=== PATIENT | male | born 1955 | race Caucasian/White ===

== ENCOUNTER 2017-08-06 10:51 | Observation (INO) | payer BC ==
[2017-08-06] MEDS ORDERED: Promethazine HCl 25 MG/ML VIAL ONE (14:18)
[2017-08-06] MEDS ORDERED: Heparin 10,000 UNITS/1 ML VIAL ONE ×3 (14:25→17:59)
[2017-08-06] MEDS ORDERED: Protamine Sulfate 50 MG/5 ML VIAL ONE (14:31)
[2017-08-06] MEDS ORDERED: Furosemide 40 MG/4 ML VIAL ONE (14:31)
[2017-08-06] MEDS ORDERED: Fentanyl 100 MCG/2 ML VIAL ONE ×4 (14:31→20:29)
[2017-08-06] MEDS ORDERED: SUGAMMADEX SODIUM 500 MG/5 ML VIAL ONE (14:47)
[2017-08-06] MEDS ORDERED: Glycopyrrolate 0.2 MG/ML 5 ML SYRINGE ONE (15:22)
[2017-08-06] MEDS ORDERED: Propofol 200 MG/20 ML VIAL ONE (15:22)
[2017-08-06] MEDS ORDERED: Ondansetron HCl/PF 4 MG/2 ML Vial ONE (15:22)
[2017-08-06] MEDS ORDERED: Succinylcholine Chloride 20 MG/ML 10 ml SYRINGE FS ONE (15:22)
[2017-08-06] MEDS ORDERED: Heparin 25,000 units/D5W 500 ML ONE (16:38)
[2017-08-06] MEDS ORDERED: Isoproterenol 0.2 MG/1 ML AMP ONE (18:15)
[2017-08-06] MEDS ORDERED: Promethazine HCl 25 MG/ML VIAL IM PRN (19:17)
[2017-08-06] MEDS ORDERED: Meperidine HCl/PF 25 MG/ML VIAL SLOW IVP PRN (19:17)
[2017-08-06] MEDS ORDERED: Ondansetron HCl/PF 4 MG/2 ML Vial IVP PRN ×2 (19:17→21:29)
[2017-08-06] MEDS ORDERED: Promethazine HCl 25 MG/ML VIAL SLOW IVP PRN (19:17)
[2017-08-06] MEDS ORDERED: Bisacodyl 5 MG TAB PO PRN (21:29)
[2017-08-06] MEDS ORDERED: Acetaminophen 325 MG TAB PO PRN (21:29)
[2017-08-06] MEDS ORDERED: Bisacodyl 10 MG SUPP PR PRN (21:29)
[2017-08-06] MEDS ORDERED: diphenhydrAMINE HCl 25 MG CAP PO PRN (21:29)
[2017-08-06] MEDS ORDERED: Nitroglycerin 0.4 MG TAB (25 Tab Bottle) SL PRN (21:29)
[2017-08-06] MEDS ORDERED: Mag-Al 1200 mg/1200 mg/30 ML UDCUP PO PRN (21:29)
[2017-08-06] MEDS ORDERED: traMADol HCl 50 MG TAB PO PRN (21:29)
[2017-08-06] MEDS ORDERED: Silver Sulfadiazine 1% Cream 50 GM JAR TOP PRN (21:29)
[2017-08-06] MEDS ORDERED: Temazepam 15 MG CAP PO PRN (21:29)
[2017-08-06 21:45] VITALS: BMI 44.1
[2017-08-07] MEDS ORDERED: Carvedilol 6.25 MG TAB PO SCH ×2 (00:30→09:00)
[2017-08-07] MEDS ORDERED: Apixaban 5 MG TAB PO SCH ×2 (00:30→09:00)
[2017-08-07] MEDS ORDERED: PROVENTIL INHALER 6.7 G (200 INHALATIONS) INH PRN (00:33)
--- NOTE | 2017-08-07 07:01 | CCL ---
DATE OF OPERATION: 08/06/2017 ELECTROPHYSIOLOGY STUDY AND RADIOFREQUENCY ABLATION REPORT REFERRING PHYSICIAN: Deep Ochoa M.D. REASON FOR PROCEDURE: Mr. Ziegler is a 61-year-old man with prior history of hypertension, diabetes, pr ior history of cardiomyopathy with reduced LVEF, although at this point his LVEF has been on ICE cat heter. He is here for pulmonary venous isolation procedure. PROCEDURE: The patient received deep sedation by Anesthesia specialist. After adequate level of se dation achieved, the both femoral veins were prepped, draped and anesthetized. The femoral veins we re accessed using vascular ultrasound guidance, and on the left side a rectus sheath and a 9 [place] short sheath was introduced. A duodeca catheter was then advanced to the coronary sinus in the righ t atrial position and also an intracardiac ultrasound was advanced through this side to help with mo nitoring transseptal procedure and monitor for IV infusion. Ultrasound map of the left atrium was o btained. Following that, the right femoral vein was accessed and a long sheath was introduced throu gh which a Sherice needle was used to perform transseptal puncture with ICE catheter monitoring. Th e Sherice catheter was exchanged through the guidewire and eventually to Agilis deflectable sheath a nd the second transseptal puncture was performed in a similar fashion to the first leaving the Prefe s sheath in place. Following that, a Lasso catheter was advanced through the left atrium and a Smar t-SF bidirectional catheter was advanced to the left atrium. A 3D map of the atrium was obtained us ing the Carto mapping system. Following that, we proceeded with a pulmonary venous isolation isolat ing all 4 veins. Following that, the catheter was then advanced to the left ventricle. The ablatio n catheter was advanced to the left ventricular and VA conduction test was performed ruling out acce ssory pathway. After that Isuprel was initiated and the pulmonary veins were rechecked for any resi dual conduction. Eventually, isolation was achieved in all 4 veins. Following that, basic EP study was performed and reinduction of the arrhythmias were attempted, but no arrhythmia was induced. MEASUREMENTS: The baseline cycle length is 772 milliseconds. The QRS duration is 82 milliseconds, QT duration is 405 milliseconds, and TN is 129 milliseconds. The normal HV interval is noted. Sinus node recovery time was measured at 1153, corrected 370 milliseconds which was normal. AV Wenc kebach cycle length was 310 milliseconds, retrograde Wenckebach cycle length was 290 milliseconds on Isuprel, AV elizabeth ERP measured to be less than 600/180 milliseconds, ------ 600/180 milliseconds. Concentric retrograde left atrial activation seen during VA pacing. Dual AV elizabeth physiology was no t present and again no additional arrhythmias were induced. CONCLUSION: 1. Successful pulmonary venous isolation performed. 2. Normal sinus and AV elizabeth function. 3. No evidence of accessory pathway. 4. No dual AV elizabeth physiology. 5. No arrhythmia induced on and off Isuprel. PLAN: Resume anticoagulation, sheaths will be pulled in the labor specialist after reversing the heparin we given throughout the procedure with protamine injection. Sheaths will be pulled in the labor specialist. The patient tolerated the procedure well, no complications noted. POS: LARON
[2017-08-07] MEDS ORDERED: Multivitamin W/ Minerals 1 TAB PO SCH (09:00)
[2017-08-07] MEDS ORDERED: Furosemide 40 MG TAB PO SCH (09:00)
[2017-08-07] MEDS ORDERED: Ascorbic Acid 500 mg Chewable Tablet PO SCH (09:00)
[2017-08-07] MEDS ORDERED: Lisinopril 20 MG TAB PO SCH (09:00)
[2017-08-07] MEDS ORDERED: CINNAMON BARK 1000 MG PO SCH (09:00)
[2017-08-07 11:48] VITALS: BP 132/64; TEMP 98.3
--- NOTE | 2017-08-07 23:45 | DIS ---
DATE OF ADMISSION: 08/06/2017 DATE OF DISCHARGE: 08/07/2017 ADMISSION DIAGNOSES: 1. Paroxysmal atrial fibrillation, previously suppressed with amiodarone, now off amiodarone. 2. History of cardiomyopathy, now normalizing left ventricular function. 3. Status post elective pulmonary venous isolation procedure on 08/06/2017. HOSPITAL COURSE: Mr. Ziegler underwent ablation procedure as noted above. He tolerated the procedure w ell, no complications noted. Subsequent day, he remained stable. PHYSICAL EXAMINATION: VITAL SIGNS: Blood pressure is 132/64, heart rate 77, respirations 20, temperature 98.3 degrees Fah renheit. GENERAL: Alert and oriented man, in no apparent distress. NECK: Supple. Jugular veins are not distended. CHEST: Coarse without crackles. CARDIOVASCULAR: Heart sounds are regular rate and rhythm, no murmur or gallop. ABDOMEN: Benign. Bowel sounds positive. EXTREMITIES: Lower extremities without edema, clubbing or cyanosis. DATABASE: EKG is reviewed revealing sinus rhythm with no atrial arrhythmias. HOSPITAL COURSE: Mr. Ziegler is a 61-year-old man with prior history of paroxysmal atrial fibrillation requiring amiodarone in the past. Now, he is off amiodarone. He underwent a pulmonary vein isolati on procedure without difficulty. He remains stable for discharge. PLAN: Discharge home on Protonix 40 mg a day; Carafate for 2-week supply; Lasix 40 mg daily, the pa gumaro is already taking, encouraged to take it everyday and double off if necessary. He is requeste d to monitor his electrolyte levels with his primary care physician. He is to resume his usual medi cations of carvedilol and also his Eliquis for anticoagulation. Six-week follow-up is requested.
== END 2017-08-07 15:16 | disposition home or self-care (01) ==
LOC: CCL 10:51 → 2SW 20:53
PROVIDERS: ADMIT Internal Medicine Cardiovascular Disease; ATTEND Internal Medicine Cardiovascular Disease
PROC: 4A023FZ Measurement of Cardiac Rhythm, Percutaneous Approach (ICD-10-PCS; principal; 2017-08-07)
PROC: 4A0234Z Measurement of Cardiac Electrical Activity, Percutaneous Approach (ICD-10-PCS; 2017-08-07)
DX: I48.0 Paroxysmal atrial fibrillation (principal); I10 Essential (primary) hypertension; I42.9 Cardiomyopathy, unspecified; M25.562 Pain in left knee; M25.561 Pain in right knee; E11.9 Type 2 diabetes mellitus without complications; Z79.84 Long term (current) use of oral hypoglycemic drugs; Z79.01 Long term (current) use of anticoagulants; Z79.899 Other long term (current) drug therapy; Z88.4 Allergy status to anesthetic agent; Z98.890 Other specified postprocedural states; Z82.3 Family history of stroke
CPT/HCPCS: 36416; 76942; 85347; 93005; 93010; 93613; 93623; 93656; 93662; 96374; C1730; C1731; C1732; C1759; C1769; G0378; J1644; J1940; J2405; J2550; J2704; J2720; J3010

== ENCOUNTER 2017-09-10 07:01 | Day surgery (SDC) | payer BC ==
[2017-09-09 13:46] VITALS: BMI 39.1
[2017-09-10] MEDS ORDERED: Diprivan 20 ML ONE (08:40)
[2017-09-10 08:42] LABS: #Eosinphils 0.2 thou/uL (0.0-0.7); #Lymphocytes 1.5 thou/uL (1.20-3.40); #Monocytes 0.8 thou/uL (0.11-0.59); #Neutrophils 5.3 thou/uL (1.40-6.50); %Basophils 0.4 % (0.0-1.0); %Eosinophils 2.7 % (0.0-10.0); %Lymphocytes 18.9 % (21.0-51.0); %Monocytes 9.7 % (0.0-10.0); Hematocrit 41.8 % (42.0-52.0); Mean Platelet Volume 8.8 fL (7.4-10.4); Red Blood Cell (RBC) Count 4.15 mill/uL (4.70-6.10); White Blood Cell (WBC) Count 7.7 thou/uL (4.8-10.8)
[2017-09-10 08:45] LABS: Prothrombin Time 14.5 SEC (12.0-14.7)
[2017-09-10 08:47] LABS: PTT 30.6 SEC (22.9-36.1)
[2017-09-10] MEDS ORDERED: Propofol 200 MG/20 ML VIAL ONE (08:56)
[2017-09-10 08:57] LABS: Anion Gap 9 mmol/L (10-20); BUN (Urea Nitrogen) 15 mg/dL (8.4-25.7); Calc. Creatinine Clearance 183 mL/min (70-130); Carbon Dioxide 30 mmol/L (22-29); Chloride 103 mmol/L (98-107); Estimated GFR-MDRD 84
--- NOTE | 2017-09-10 09:27 | OP ---
DATE OF SERVICE: 09/10/2017 PROCEDURE: Cardioversion. REASON FOR PROCEDURE: Mr. Ziegler is a 61-year-old man with history of paroxysmal atrial fibrillation. He underwent pulmonary venous isolation procedure 3 weeks ago, but developed palpitations and dyspn eic symptoms, found to be in persisting atrial flutter with rapid rate in the 130s. He is here for a cardioversion. The patient has been well anticoagulated without interruption since the procedure and his stroke ris k is low. PROCEDURE: The patient received deep sedation per Anesthesia specialist. After adequate level of s edation achieved, a synchronized 100 joule shock promptly converted the patient back to sinus rhythm . CONCLUSION: Successful cardioversion. PLAN: We will give IV amiodarone and resume p.o. amiodarone transiently for the next 3 months and t hen stop. Routine follow up as planned.
--- NOTE | 2017-09-10 12:22 | EKG ---
Test Reason : PREOP CARDIOVERSION Blood Pressure : / mmHG Vent. Rate : 135 BPM Atrial Rate : 141 BPM P-R Int : 000 ms QRS Dur : 096 ms QT Int : 362 ms P-R-T Axes : 000 080 000 degrees QTc Int : 543 ms narrow complex tachycardia without well defined p waves Poor anterior R wave progression Nonspecific ST-T changes When compared with ECG of 07-AUG-2017 06:48, (Unconfirmed) Current undetermined rhythm precludes rhythm comparison, needs review Criteria for Anterior infarct are no longer Present Non-specific change in ST segment in Inferior leads Confirmed by DR. Samantha MCCULLOUGH (3) on 09/10/2017 12:22:13 PM Referred By: EVA Confirmed By:DR. Samantha MCCULLOUGH
== END 2017-09-10 10:30 | disposition home or self-care (01) ==
LOC: SDC 07:01
PROVIDERS: ATTEND Internal Medicine Cardiovascular Disease
DX: I48.92 Unspecified atrial flutter (principal); I48.0 Paroxysmal atrial fibrillation; I10 Essential (primary) hypertension; E11.9 Type 2 diabetes mellitus without complications; Z79.01 Long term (current) use of anticoagulants; Z79.84 Long term (current) use of oral hypoglycemic drugs; Z79.899 Other long term (current) drug therapy; Z88.1 Allergy status to other antibiotic agents; Z96.659 Presence of unspecified artificial knee joint; Z90.89 Acquired absence of other organs; Z98.890 Other specified postprocedural states; Z82.3 Family history of stroke
CPT/HCPCS: 36415; 80048; 85025; 85610; 85730; 92960; 93005; 93010; J0282; J2704

== ENCOUNTER 2019-09-27 19:07 | Observation (INO) | payer BC ==
[2019-09-27] MEDS ORDERED: Ondansetron ODT 4 MG TAB PO PRN (22:09)
[2019-09-27] MEDS ORDERED: Dextrose 5% in Water 1,000 ML IV PRN (22:09)
[2019-09-27] MEDS ORDERED: hydrALAZINE 20 MG/ML VIAL SLOW IVP PRN (22:09)
[2019-09-27] MEDS ORDERED: Nitroglycerin 0.4 MG TAB (25 Tab Bottle) PO PRN (22:09)
[2019-09-27] MEDS ORDERED: HumaLOG 300 UNITS/3 ML VIAL SC PRN ×2 (22:09)
[2019-09-27] MEDS ORDERED: Dextrose 50% Abboject 50 ML SYRINGE SLOW IVP PRN (22:09)
[2019-09-27] MEDS ORDERED: Acetaminophen 500 MG TAB PO PRN (22:09)
[2019-09-27] MEDS ORDERED: Ondansetron PF 4 MG/2 ML Vial IVP PRN (22:09)
[2019-09-27] MEDS ORDERED: Aspirin 325 MG TAB PO SCH (22:30)
[2019-09-27 22:46] VITALS: BMI 40.4
[2019-09-27 23:34] LABS: Troponin I Less than 0.010 ng/mL (< 0.028)
[2019-09-28 02:26] LABS: Troponin I Less than 0.010 ng/mL (< 0.028)
[2019-09-28 05:43] LABS: Cardiac Risk 2.6 (Less than 4.5)
[2019-09-28] MEDS: Furosemide 40 MG TAB PO SCH (08:36)
[2019-09-28] MEDS: Sucralfate 1 GM TAB PO SCH ×4 (08:36→20:53)
[2019-09-28] MEDS: Famotidine 20 MG TAB PO SCH ×2 (08:36→20:53)
[2019-09-28] MEDS: Multivitamin W/ Minerals 1 TAB PO SCH (08:37)
[2019-09-28] MEDS: Lisinopril 20 MG TAB PO SCH (08:37)
[2019-09-28] MEDS: Ascorbic Acid 500 mg Chewable Tablet PO SCH (08:37)
[2019-09-28] MEDS: Aspirin 325 mg Enteric Coated Tablet PO SCH (08:37)
[2019-09-28] MEDS ORDERED: CINNAMON BARK 1000 MG PO SCH (09:00)
[2019-09-28] MEDS ORDERED: Apixaban 5 MG TAB PO SCH (09:00)
[2019-09-28] MEDS: Carvedilol 25 MG TAB PO SCH ×2 (11:05→16:54)
[2019-09-28] MEDS ORDERED: Regadenoson 0.4 MG/5 ML SYRINGE ONE (16:30)
--- NOTE | 2019-09-28 16:44 | HP ---
REASON FOR ADMISSION: Chest pain. HISTORY OF PRESENTING ILLNESS: The patient gives history of chest pain which started out 2 days back. This started while he was working. 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 It was pressure-like pain in the retrosternal area with radiation to the back and left shoulder. The patient managed to work despite this pressure-like pain and went home. He could not sleep as the pain came back. This morning, when he went to work, the pressure-like pain appeared again and he could not work. He was hunched over to get relief. Finally, the patient drove himself to [facility] to check it out. He got 3 sublingual nitroglycerin in the ER, and the chest discomfort completely subsided. No prior history of stress test done. He has seen Dr. Ochoa for atrial fibrillation in the past. No cough or expectoration. No fever. No complaints of palpitations, PND, or orthopnea. PAST MEDICAL AND SURGICAL HISTORY: 1. Morbid obesity. 2. Hypertension. 3. Diabetes mellitus type 2. 4. History of paroxysmal atrial fibrillation. 5. Bilateral knee replacements. 6. Left elbow surgery. 7. Umbilical hernia repair by Dr. Miller. CURRENT MEDICATIONS: 1. The patient is on lisinopril with hydrochlorothiazide 10/12.5 mg p.o. daily. 2. Metformin 500 mg p.o. twice daily. 3. Carvedilol 12.5 mg twice daily. 4. Lasix 20 mg daily. 5. Eliquis 5 mg twice daily. 6. Multivitamin 1 tablet once daily. 7. Vitamin C 1 tablet daily. 8. Cinnamon over the counter tablet daily. ALLERGIES: NO KNOWN DRUG ALLERGIES. PERSONAL HISTORY: Dips tobacco. Drinks 2 beers in the evenings. Does not abuse drugs or smoke. He lives alone. 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 FAMILY HISTORY: Mother at the age of 84 years, she has had dementia. Father in his 70s, he has had history of diabetes mellitus and [place]. CODE STATUS: Full. POWER OF SENIOR NETWORK SYSTEMS ENGINEER: His sister, Ms. Kline. REVIEW OF SYSTEMS: CONSTITUTIONAL: Negative for weight loss or gain, ability to conduct usual activities. SKIN: Negative for rash, itching. EYES: Negative for double vision, pain. ENT/MOUTH: Negative for nose bleeding, neck stiffness, pain, tenderness. CARDIOVASCULAR: Negative for palpitations, dyspnea on exertion, orthopnea. RESPIRATORY: Negative for shortness of breath, wheezing, cough, hemoptysis, fever or night sweats. GASTROINTESTINAL: Negative for poor appetite, abdominal pain, heartburn, nausea , vomiting, constipation, or diarrhea. GENITOURINARY: Negative for urgency, frequency, dysuria, nocturia. MUSCULOSKELETAL: Negative for pain, swelling. NEUROLOGIC/PSYCHIATRIC: Negative for anxiety, depression. ALLERGY/IMMUNOLOGIC: Negative for skin rash, bleeding tendency. PHYSICAL EXAMINATION: GENERAL: The patient is a 63-year-old male, who is currently not in any acute distress. VITAL SIGNS: Blood pressure 114/68, pulse 78 per minute, respiratory rate 18 per minute, temperature 97.6 degrees Fahrenheit, saturating 97% on room air. NECK: Supple. No elevated JVD. HEENT: Eyes; extraocular muscles intact, pupils reacting to light. Oral cavity ; mucous membranes are moist, no exudates or congestion. CARDIOVASCULAR SYSTEM: S1 and S2 heard. Regular rhythm. RESPIRATORY SYSTEM: Air entry 2+ bilateral. No rales or rhonchi. ABDOMEN: Soft. Bowel sounds heard. No tenderness, rigidity, or guarding. EXTREMITIES: No peripheral edema or calf tenderness. VASCULAR SYSTEM: Peripheral pulses 1+ bilateral. No ischemic ulcerations or gangrene. CENTRAL NERVOUS SYSTEM: No gross focal deficits noted. The patient is alert, awake, and oriented well. PSYCHIATRIC SYSTEM: The patient's mood is euthymic. No hallucinations or delusions. LABORATORY DATA: White count of 10, hemoglobin 15, hematocrit 47, platelet count 169, MCV is 98 with 70% neutrophils. PT, INR, PTT within normal limits. Total cholesterol 88, triglycerides 46, LDL 45, HDL 34. Troponin x3 negative. BUN 18 , creatinine 0.9, serum glucose 162, AST 35, ALT 34, total bilirubin 0.9, alkaline phosphatase 76, albumin is 4.2. BNP is 56. IMAGING STUDIES: EKG done shows normal sinus rhythm at 76 beats per minute. There is questionable Q-wave seen in V1, V2, V3. CLINICAL IMPRESSION AND PLAN: The patient will be under observation on telemetry for chest pain, rule out acute coronary syndrome. He has had 3 sets of troponin which are negative. We will obtain a nuclear stress test. The patient will be a 2-day stress test due to his obesity. He has typical angina. He will be on full-dose aspirin. Eliquis will be held for possible procedures if the stress test is positive. We will continue his Coreg, Lasix, lisinopril, multivitamin as before. Echo with 2D Doppler for LV function will be obtained. The patient has EKG changes in the anteroseptal area. Also, he is morbidly obese and will likely need echo for confirmation of wall motion. He will be kept n.p.o. after midnight for possible further cardiac workup if the stress test is positive. Job ID: [id number] [facility]
[2019-09-29] MEDS: Ascorbic Acid 500 mg Chewable Tablet PO SCH (08:51)
[2019-09-29] MEDS: Lisinopril 20 MG TAB PO SCH (08:51)
[2019-09-29] MEDS: Aspirin 325 mg Enteric Coated Tablet PO SCH (08:51)
[2019-09-29] MEDS: Carvedilol 25 MG TAB PO SCH ×2 (08:52→16:21)
[2019-09-29] MEDS: Multivitamin W/ Minerals 1 TAB PO SCH (08:52)
[2019-09-29] MEDS: Furosemide 40 MG TAB PO SCH (08:52)
[2019-09-29] MEDS: Sucralfate 1 GM TAB PO SCH ×4 (08:58→21:02)
[2019-09-29] MEDS: Famotidine 20 MG TAB PO SCH ×2 (08:58→21:02)
--- NOTE | 2019-09-29 08:59 | NM ---
NUCLEAR MEDICINE CARDIAC STRESS WITH EF AND WALL MOTION: HISTORY: Chest pain. COMPARISON: None. TECHNIQUE: The patient was administered 29.6 mCi of technetium 99m sestamibi for rest imaging and 31.90 cm of te chnetium 99M sestamibi for stress imaging. Cardiac gating was performed. FINDINGS: Fixed defect involving the cardiac apex. No evidence of reversibility. TID is 1.11. End-diastolic volume is 210 mL End systolic volume is 104 mL Cardiac gating: Gallbladder wall thickening and contraction is at the lower limits of normal. 50% eje ction fraction. A component of mild global hypokinesis cannot be excluded. IMPRESSION: 1. Fixed defect in the cardiac apex. 2. Mild global hypokinesis. 50% ejection fraction. Transcribed Date/Time: 09/29/2019 9:07 AM
--- NOTE | 2019-09-29 11:34 | PDOC.HOSPP ---
- Subjective Encounter Date: 09/29/19 Encounter Time: 10:15 Subjective: no further chest pain or sob finished his stress test, is npo - Objective Vital Signs & Weight: Vital Signs (12 hours) Temp Pulse Resp BP Pulse Ox 09/29/19 07:35 98.0 F 64 24 H 149/74 H 95 09/29/19 05:38 97.6 F 65 18 151/79 H 96 Weight Weight 349 lb 4.8 oz I&O: 09/28/19 09/29/19 09/30/19 06:59 06:59 06:59 Intake Total 240 720 Balance 240 720 Additional Labs: Accuchecks 09/29/19 09/29/19 09/28/19 11:23 05:34 21:27 POC Glucose 149 H 144 H 166 H 09/28/19 16:38 POC Glucose 157 H Hospitalist ROS - Medication Medications: Active Medications Generic Name Dose Route Start Last Admin Trade Name Freq PRN Reason Stop Dose Admin Ascorbic Acid 1,000 mg 09/28/19 09:00 09/29/19 08:51 Vitamin C PO 1,000 mg DAILY DAVE Administration Aspirin 325 mg 09/28/19 09:00 09/29/19 08:51 Ecotrin PO 325 mg DAILY DAVE Administration Carvedilol 12.5 mg 09/28/19 08:00 09/29/19 08:52 Coreg PO 12.5 mg BID-WM DAVE Administration Famotidine 20 mg 09/28/19 09:00 09/29/19 08:58 Pepcid PO Not Given BID DAVE Furosemide 40 mg 09/28/19 09:00 09/29/19 08:52 Lasix PO 40 mg QAM DAVE Administration Iron/Minerals/Multivitamins 1 tab 09/28/19 09:00 09/29/19 08:52 Theragran M PO 1 tab DAILY DAVE Administration Lisinopril 20 mg 09/28/19 09:00 09/29/19 08:51 Zestril PO 20 mg QAM DAVE Administration Sucralfate 1 gm 09/28/19 09:00 09/29/19 08:58 Carafate PO Not Given QID DAVE - Exam General Appearance: NAD, awake alert Eye: PERRL, anicteric sclera ENT: no oropharyngeal lesions, moist mucosa Neck: supple, no JVD Heart: RRR, no murmur Respiratory: no wheezes, no rales Gastrointestinal: soft, non-tender, non-distended, normal bowel sounds Extremities: no cyanosis, no edema Neurological: cranial nerve grossly intact, no focal deficits Psychiatric: normal affect, A&O x 3 Hosp A/P (1) Chest pain Code(s): R07.9 - CHEST PAIN, UNSPECIFIED Status: Acute (2) Obesity Code(s): E66.9 - OBESITY, UNSPECIFIED Status: Chronic Qualifiers: Obesity classification: adult class 3 (BMI >= 40) Body mass index: BMI 40.0 -44.9 (3) HTN (hypertension) Code(s): I10 - ESSENTIAL (PRIMARY) HYPERTENSION Status: Chronic Qualifiers: Hypertension type: essential hypertension Qualified Code(s): I10 - Essential (primary) hypertension (4) DM II (diabetes mellitus, type II), controlled Code(s): E11.9 - TYPE 2 DIABETES MELLITUS WITHOUT COMPLICATIONS Status: Chronic Qualifiers: Diabetes mellitus jail insulin use: without jail use (5) Paroxysmal atrial fibrillation Code(s): I48.0 - PAROXYSMAL ATRIAL FIBRILLATION Status: Chronic - Plan stress test showed fixed defect at the apex, mild global hypokinesis, no reversible isch trop x3 -ve had typical exertional angina when he came with complete relief from nitrates will obtain cardiology consultation, keep him npo he is off eliquis from admission continue current meds h/o large normal heart per patient has not had prior stress test or angio per patient
--- NOTE | 2019-09-29 17:37 | CON ---
DATE OF CONSULTATION: HISTORY OF PRESENT ILLNESS: The patient is a 63-year-old gentleman, who presented for evaluation of chest discomfort. The patient has a previous history of atrial fibrillation. He has undergone radiofrequency ablation for atrial fibrillation. He has been maintained on chronic anticoagulation therapy. The patient was in his usual state of health when he developed left-sided chest discomfort. This occurred for several days. The discomfort was always left-sided and seemed to be worse with movement. The patient came to the emergency room. He noted that nitroglycerin had greatly relieved his discomfort. The patient denies having any present chest discomfort. PAST MEDICAL HISTORY: 1. Hypertension. 2. Diabetes mellitus. 3. Elevated liver function test. PAST SURGICAL HISTORY: Elbow surgery. SOCIAL HISTORY: Nonsmoker. FAMILY HISTORY: Positive family history of heart disease. MEDICATIONS: 1. Coreg 12.5 b.i.d. 2. Pepcid 20 daily. 3. Eliquis 5 b.i.d. 4. Lisinopril 20 q.a.m. 5. Lasix 40 daily. 6. Metformin 500 b.i.d. 7. Sucralfate 500 b.i.d. PHYSICAL EXAMINATION: GENERAL: This is an obese gentleman, in no acute distress. VITAL SIGNS: Blood pressure 146/84. NECK: Showed no jugular venous distention. LUNGS: Clear to auscultation. HEART: Regular rate and rhythm with a normal S1 and S2. ABDOMEN: Nondistended. EXTREMITIES: Show trace edema. VASCULAR: Radial pulses were 2+. LABORATORY DATA: White blood cell count was 10.4, hemoglobin 15.9, hematocrit 47.5, platelets 169. His sodium was 140, potassium 4.0, chloride 101, bicarbonate 27 , BUN 18, creatinine 0.93, glucose was 162. Troponin level was less than 0.01. EKG revealed normal sinus rhythm with Q-waves suggestive of previous anterior infarct. Cardiolite stress test revealed him to have left ventricular ejection fraction of 50%, global hypokinesis, and a fixed defect in the cardiac apex. IMPRESSION: 1. Chest pain. 2. Abnormal stress test. 3. History of atrial fibrillation. 4. Hypertension. 5. Diabetes mellitus. 6. Morbid obesity. This gentleman presents with chest pain with some features suggestive of angina. He has evidence of a fixed defect in his anterior wall. The patient is being treated with aspirin. His Eliquis has been held. We will follow this patient with you through his hospitalization. Job ID: [id number] [facility]
[2019-09-29] MEDS ORDERED: Communication Order-Pharmacy FS SCH (18:15)
[2019-09-30] MEDS: Furosemide 40 MG TAB PO SCH (04:00)
[2019-09-30] MEDS: Multivitamin W/ Minerals 1 TAB PO SCH (05:09)
[2019-09-30] MEDS: Ascorbic Acid 500 mg Chewable Tablet PO SCH (05:09)
[2019-09-30] MEDS: Aspirin 325 mg Enteric Coated Tablet PO SCH (05:09)
[2019-09-30] MEDS: Carvedilol 25 MG TAB PO SCH (05:10)
[2019-09-30] MEDS: Sucralfate 1 GM TAB PO SCH ×2 (05:10→13:40)
[2019-09-30] MEDS: Famotidine 20 MG TAB PO SCH (05:10)
[2019-09-30] MEDS: Lisinopril 20 MG TAB PO SCH (05:10)
[2019-09-30] MEDS ORDERED: Diazepam 5 MG TAB PO SCH (08:00)
[2019-09-30] MEDS ORDERED: Sodium Chloride 0.9% 1,000 ML IV SCH (08:00)
[2019-09-30] MEDS ORDERED: Lidocaine 1% (PF) 30 ML VIAL ONE (08:37)
[2019-09-30] MEDS ORDERED: Heparin (Artline) 1,000 ML ONE (08:37)
[2019-09-30] MEDS ORDERED: Iopamidol 370 76% 100 ML VIAL ONE (10:23)
[2019-09-30] MEDS ORDERED: Fentanyl 100 MCG/2 ML VIAL ONE (10:37)
[2019-09-30] MEDS ORDERED: Midazolam HCl 2 mg/2 ml Vial ONE (10:37)
[2019-09-30] MEDS ORDERED: Acetaminophen/Codeine 30-300mg Tablet PO PRN ×2 (12:26)
[2019-09-30] MEDS ORDERED: Sodium Chloride 0.9% 200 ML IV PRN (12:26)
[2019-09-30] MEDS ORDERED: Nitroglycerin 0.4 MG TAB (25 Tab Bottle) SL PRN (12:26)
[2019-09-30 16:13] VITALS: BP 163/80; TEMP 97.9
--- NOTE | 2019-10-02 16:16 | DIS ---
DATE OF ADMISSION: 09/27/2019 DATE OF DISCHARGE: 09/30/2019 PRIMARY CARE PHYSICIAN: Jose Carlos Rico MD DISCHARGE DISPOSITION: Home. PRIMARY DISCHARGE DIAGNOSIS: Chest pain, which is noncardiac. SECONDARY DISCHARGE DIAGNOSES: Hypertension, diabetes mellitus type 2, obesity , and paroxysmal atrial fibrillation. PROCEDURES DONE DURING HOSPITALIZATION: Cardiac catheterization done by Dr. Ochoa on 09/30/2019 showed normal coronaries. Ejection fraction was 50%. The findings were mild cardiomyopathy. Echo with 2D Doppler showed an EF of 50% to 55%. Left atrial size was [id number] dilated, left atrial dimension was 5.36 cm on the echo. LABORATORY DATA: Total cholesterol 88, triglycerides 46, LDL 45, and HDL 34. Troponin x3 negative. INPATIENT CONSULT: Dr. Ochoa/Dr. Sweet for Cardiology. DISCHARGE PLAN: The patient to follow up with his primary care physician, Dr. Rico in 1 week. He needs follow up with Dr. Ochoa as advised. BRIEF COURSE DURING HOSPITALIZATION: The patient initially came in with complaints of chest pain. This was worse with exertion. In view of multiple risk factors , the patient was placed under observation on telemetry. He has had 3 sets of troponin done, which was negative. The patient has had cardiac catheterization done, which showed normal coronaries. He also had findings of mild cardiomyopathy in the catheterization. He remained chest pain-free during his stay. He was counseled with regard to weight loss and healthy eating. The patient's BMI is 39. He is cleared for discharge today by Dr. Ochoa. Please note, I have seen and examined the patient on the day of discharge. Job ID: [id number] [facility]
== END 2019-09-30 16:44 | disposition home or self-care (01) ==
LOC: ERS 19:07 → 2SW 20:22
PROVIDERS: ADMIT Internal Medicine; ATTEND Internal Medicine
PROC: 4A023N7 Measurement of Cardiac Sampling and Pressure, Left Heart, Percutaneous Approach (ICD-10-PCS; principal; 2019-09-30)
PROC: B2111ZZ Fluoroscopy of Multiple Coronary Arteries using Low Osmolar Contrast (ICD-10-PCS; 2019-09-30)
DX: R07.89 Other chest pain (principal); I10 Essential (primary) hypertension; I42.9 Cardiomyopathy, unspecified; I48.0 Paroxysmal atrial fibrillation; E11.9 Type 2 diabetes mellitus without complications; E66.01 Morbid (severe) obesity due to excess calories; F17.290 Nicotine dependence, other tobacco product, uncomplicated; Z68.39 Body mass index [BMI] 39.0-39.9, adult; Z79.01 Long term (current) use of anticoagulants; Z79.84 Long term (current) use of oral hypoglycemic drugs; Z79.899 Other long term (current) drug therapy; Z88.1 Allergy status to other antibiotic agents; Z96.653 Presence of artificial knee joint, bilateral
CPT/HCPCS: 36415; 36416; 76942; 78452; 80061; 84484; 93005; 93017; 93306; 93458; 96360; 96361; 99152; 99153; A9500; C1769; G0378; J1644; J2001; J2250; J2785; J3010; Q9967

== ENCOUNTER 2023-09-08 16:38 | Outpatient (CLI) | payer OTHER ==
[2023-09-08 17:59] LABS: #Basophils 0.1 10x3/uL (0.0-0.2); #Eosinphils 0.1 10x3/uL (0.0-0.5); #Monocytes 1.2 10x3/uL (0.0-1.1); #Neutrophils 7.2 10x3/uL (1.5-8.4); %Basophils 0.6 % (0.0-2.0); %Monocytes 11.6 % (0.0-10.0); %Neutrophils 72.1 % (40.0-75.0); Hematocrit 47.6 % (38.8-50.0); Hemoglobin 16.6 g/dL (13.5-17.5); Mean Corpuscular HGB CONC 34.9 g/dL (32.0-36.0); Mean Corpuscular Hemoglobin 35.5 pg (27.0-33.0); Mean Corpuscular Volume 101.7 fl (81.2-95.1); Mean Platelet Volume 10.9 fl (7.4-10.4); Platelet Count 167 10x3/uL (150-450); RBC Distribution Width 13.1 % (11.5-14.5); Red Blood Cell (RBC) Count 4.68 10x6/uL (4.32-5.72); White Blood Cell (WBC) Count 9.9 10x3/uL (3.5-10.5)
[2023-09-08 18:08] LABS: Anion Gap 17 mmol/L (10-20); BUN (Urea Nitrogen) 16 mg/dL (8.4-25.7); Calc. Creatinine Clearance 0 mL/min (70-130); Calcium 8.6 mg/dL (7.8-10.44); Carbon Dioxide 25 mmol/L (23-31); Chloride 101 mmol/L (98-107); Estimated GFR 97; Glucose 91 mg/dL (80-115); Potassium 3.7 mmol/L (3.5-5.1); Sodium 139 mmol/L (136-145)
== END 2023-09-08 16:39 | disposition home or self-care (01) ==
LOC: LABBT 16:38
PROVIDERS: ATTEND Internal Medicine Cardiovascular Disease
DX: Z01.812 Encounter for preprocedural laboratory examination (principal); I48.91 Unspecified atrial fibrillation
CPT/HCPCS: 80048; 83880; 85025

== ENCOUNTER 2023-09-11 05:52 | Day surgery (SDC) | payer OTHER ==
[2023-09-08 17:00] VITALS: BMI 43.1
[2023-09-11] MEDS ORDERED: PROPOFOL 200 MG/20 ML VIAL ONE (09:01)
== END 2023-09-11 10:05 | disposition home or self-care (01) ==
LOC: SDC 05:52
PROVIDERS: ATTEND Internal Medicine Cardiovascular Disease
PROC: 5A2204Z Restoration of Cardiac Rhythm, Single (ICD-10-PCS; principal; 2023-09-11)
DX: I48.0 Paroxysmal atrial fibrillation (principal); I11.0 Hypertensive heart disease with heart failure; I50.42 Chronic combined systolic (congestive) and diastolic (congestive) heart failure; E11.9 Type 2 diabetes mellitus without complications; G47.33 Obstructive sleep apnea (adult) (pediatric); E78.00 Pure hypercholesterolemia, unspecified; J18.9 Pneumonia, unspecified organism; R74.01 Elevation of levels of liver transaminase levels; E66.01 Morbid (severe) obesity due to excess calories; Z68.43 Body mass index [BMI] 50.0-59.9, adult; Z98.890 Other specified postprocedural states; Z79.899 Other long term (current) drug therapy
CPT/HCPCS: 92960; 93005; 93010; J2704

== ENCOUNTER 2023-10-16 06:58 | Day surgery (SDC) | payer OTHER ==
[2023-10-16 07:49] LABS: #Eosinphils 0.2 thou/uL (0.0-0.7); #Monocytes 0.6 thou/uL (0.11-0.59); #Neutrophils 4.2 thou/uL (1.40-6.50); %Basophils 0.6 % (0.0-1.0); %Eosinophils 2.6 % (0.0-10.0); %Lymphocytes 26.1 % (21.0-51.0); %Monocytes 9.2 % (0.0-10.0); %Neutrophils 60.2 % (42.0-75.0); Hematocrit 50.1 % (42.0-52.0); Mean Corpuscular HGB CONC 33.9 g/dL (32.0-36.0); Mean Corpuscular Hemoglobin 35.2 pg (27.0-31.0); Mean Corpuscular Volume 103.7 fl (78.0-98.0); Platelet Count 120 10x3/uL (130-400); RBC Distribution Width 14.3 % (11.5-14.5); Red Blood Cell (RBC) Count 4.83 mill/uL (4.70-6.10)
[2023-10-16 08:04] LABS: INR-International Normal Ratio 1.1; PTT 31.3 sec (22.9-36.1); Prothrombin Time 14.4 sec (12.0-14.7)
[2023-10-16] MEDS ORDERED: Lidocaine 1% PF 5 ML VIAL ONE (08:18)
[2023-10-16] MEDS ORDERED: PHENYLEPHRINE-NS 100 MCG/ML 10 ML SYRINGE ONE ×2 (08:18→08:19)
[2023-10-16] MEDS ORDERED: Succinylcholine 200 MG/10 ml SYRINGE FS ONE (08:18)
[2023-10-16] MEDS ORDERED: ePHEDrine Sulfate 50 MG/10 ML VIAL ONE (08:18)
[2023-10-16] MEDS ORDERED: PROPOFOL 20 ML ONE (08:19)
[2023-10-16] MEDS ORDERED: Midazolam HCl 2 mg/2 ml Vial ONE (08:26)
[2023-10-16] MEDS ORDERED: Ketamine In 0.9 % NaCl 50 MG/5 ML SYRINGE ONE (08:26)
[2023-10-16 09:11] LABS: Anion Gap 13 mmol/L (10-20); BUN (Urea Nitrogen) 17 mg/dL (8.4-25.7); Calc. Creatinine Clearance 0 mL/min (70-130); Calcium 8.8 mg/dL (7.8-10.44); Carbon Dioxide 27 mmol/L (23-31); Chloride 103 mmol/L (98-107); Estimated GFR 95; Glucose 145 mg/dL (80-115); Potassium 4.1 mmol/L (3.5-5.1); Sodium 139 mmol/L (136-145)
[2023-10-16] MEDS ORDERED: Hydrocortisone 1% Cream 30 GM TUBE ONE (09:42)
== END 2023-10-16 09:55 | disposition home or self-care (01) ==
LOC: SDC 06:58
PROVIDERS: ATTEND Internal Medicine Cardiovascular Disease
PROC: 5A2204Z Restoration of Cardiac Rhythm, Single (ICD-10-PCS; principal; 2023-10-16)
DX: I48.19 Other persistent atrial fibrillation (principal); I48.0 Paroxysmal atrial fibrillation; I10 Essential (primary) hypertension; E11.9 Type 2 diabetes mellitus without complications; I11.0 Hypertensive heart disease with heart failure; I50.42 Chronic combined systolic (congestive) and diastolic (congestive) heart failure; E78.00 Pure hypercholesterolemia, unspecified; G47.33 Obstructive sleep apnea (adult) (pediatric); I47.19 Other supraventricular tachycardia; E66.01 Morbid (severe) obesity due to excess calories; Z68.43 Body mass index [BMI] 50.0-59.9, adult; Z88.4 Allergy status to anesthetic agent; Z79.84 Long term (current) use of oral hypoglycemic drugs; Z79.01 Long term (current) use of anticoagulants; Z79.899 Other long term (current) drug therapy
CPT/HCPCS: 80048; 85025; 85610; 85730; 92960; 93005; 93010; J2250; J2704; J3490